=== PATIENT | male | born 1995 | race Caucasian/White ===

== ENCOUNTER 2018-07-11 12:22 | Emergency (ER) | payer BC ==
[2018-07-11 12:29] VITALS: BP 138/82
--- NOTE | 2018-07-11 12:32 | EDPHY ---
H & P Stated Complaint: hit head Time Seen by Provider: 07/11/18 12:25 - Personal History Current Tetanus Diphtheria and Acellular Pertussis (TDAP): Yes - Medical/Surgical History Hx Asthma: No Hx Chronic Respiratory Disease: No Hx Diabetes: No Hx Cardiac Disease: No Hx Renal Disease: No Hx Cirrhosis: No Hx Alcoholism: No Hx HIV/AIDS: No Hx Splenectomy or Spleen Trauma: No Other PMH: denies - Social History Smoking Status: Never smoked Constitutional: Initial Vital Signs Temperature (C) 37.3 C 07/11/18 12:27 Heart Rate 84 07/11/18 12:27 Respiratory Rate 16 07/11/18 12:27 Blood Pressure 138/82 H 07/11/18 12:27 O2 Sat (%) 96 07/11/18 12:27 O2 Delivery Mode Room Air Allergies/Adverse Reactions: No Known Drug Allergies Allergy (Verified 07/11/18 12:29) Medical Decision Making ED Course/Re-evaluation: CHIEF COMPLAINT: Syncope then hit head HISTORY OF PRESENT ILLNESS: The patient is a 22 y/o male complaining of a syncopal episode and hitting his head after a Jiu Jitsu hold. The patient was in lab today when a friend was showing him a neck arm lock hold (on the patient). The friend held the hold for 7-8 seconds when the patient lost consciousness, slid out of his chair that he was sitting in, and then hit his right pentecostalism. The patient lost consciousness for around 10-15 seconds. Since he hit his head after becoming unconscious he decided to present to the emergency department. He denies neck or tracheal pain as well as any neurological deficits. No fever, body aches, lightheadedness, chest pain, heart palpitations, shortness of breath, cough, abdominal pain, urinary or bowel complaints, numbness, paresthesias. REVIEW OF SYSTEMS: A comprehensive 10 system review of systems is otherwise negative aside from elements mentioned in the history of present illness and medical decision making. PHYSICAL EXAM: HR, BP, O2 Sat, RR. Temp noted General Appearance: Alert, well hydrated, appropriate, and non-toxic appearing. Head: Right-sided pentecostalism contusion. Eyes: Pupils equal, round, reactive to light and accommodation, EOMI, no trauma , no injection. Ears: Clear bilaterally, no perforation, normal landmarks Nose: Atraumatic, no rhinorrhea, clear. Throat: There is no erythema or exudates, no lesions, normal tonsils, mucus membranes moist. Neck: Supple, 2+ carotid upstroke, nontender, no lymphadenopathy. Respiratory: No retractions, no distress, no wheezes, and no accessory muscle use. Lungs are clear to auscultation bilaterally. Cardiovascular: Regular rate and rhythm, no murmurs, rubs, or gallops. Bilateral carotid, radial, dorsalis pedis, and posterior tibial pulses intact. Good capillary refill all extremities. Gastrointestinal: Abdomen is soft, nontender, non-distended, no masses, no rebound, no guarding, no peritoneal signs. Musculoskeletal: Normal active ROM of all extremities, atraumatic. Neurological: Alert, appropriate, and interactive. The patient has normal DTRs and non-focal cranial nerves, motor, sensory, and cerebellar exam. Skin: No rashes, good turgor, no nodules on palpation. Past medical history: Denies Past surgical history: Denies Family history: Denies Social history: Friend at bedside, student at , single DIAGNOSTICS/PROCEDURES/CRITICAL CARE TIME: Not indicated. DIFFERENTIAL DIAGNOSIS: The differential diagnosis for the patient's head injury included but was not limited to scalp contusion, concussion, skull fracture, intra-parenchymal contusion, subarachnoid, subdural and epidural hematoma. The differential diagnosis for the patient's syncope included but was not limited to vasovagal syncope, arrhythmia, dehydration, cardiogenic causes, neurogenic causes, and blood loss. MEDICAL DECISION MAKING: The patient is a 22 y/o male presenting with a syncopal episode and hitting his head after a Jiu Jitsu hold. The patient's friend held the hold for 7-8 seconds when the patient lost consciousness, slid out of his chair that he was sitting in, and then hit his right pentecostalism. The patient lost consciousness for around 10-15 seconds. On exam the patient has a right-sided contusion of his pentecostalism. As the patient lost consciousness prior to hitting his head, I do not suspect he has an intracranial injury. He does not meet [facility] Head CT or [facility] Head CT requirements. I discussed the risks and benefits associated with a head CT, and the patient is comfortable with not having a CT performed at this time. Return precautions provided; patient is comfortable with this plan. Departure - Departure Disposition: Home, Routine, Self-Care Clinical Impression: Head injury Qualifiers: Encounter type: initial encounter Qualified Code(s): S09.90XA - Unspecified injury of head, initial encounter Scalp contusion Qualifiers: Encounter type: initial encounter Qualified Code(s): S00.03XA - Contusion of scalp, initial encounter Condition: Good Instructions: Head Injury (ED), Scalp Contusion in Adults (ED) Additional Instructions: 1. Follow-up with your primary doctor within 72 hours. 2. Return to the Emergency Department for severe headache, vomiting, vision changes, confusion, fever or other concerns. Referrals: MARY,DOCTOR [Other] - As per Instructions Report Scribed for: Oli Shields Report Scribed by: Claribel Thompson Date of Report: 07/11/18 Time of Report: 12:35
== END 2018-07-11 12:55 | disposition home or self-care (01) ==
DX: R55 Syncope and collapse (principal); S00.03XA Contusion of scalp, initial encounter; W07.XXXA Fall from chair, initial encounter; Y93.75 Activity, martial arts